=== PATIENT | female | born 1945 | race Caucasian/White ===

== ENCOUNTER 2020-12-25 09:40 | Outpatient (REF) | payer MEDICARE, SELFPAY ==
[2020-12-25 14:00] LABS: TSH 0.39 uIU/mL (0.36-3.74)
== END 2020-12-25 09:41 | disposition home or self-care (01) ==
LOC: NCHCN 09:40
PROVIDERS: PCP Internal Medicine; Visit Provider Registered Nurse
DX: E03.9 Hypothyroidism, unspecified (principal)
CPT/HCPCS: 84443

== ENCOUNTER 2021-05-12 17:10 | Outpatient (REF) | payer MEDICARE, OTHER, SELFPAY ==
[2021-05-14 11:34] LABS: COVID-19 RT-PCR UVMMC Result Negative (Negative)
== END 2021-05-12 17:11 | disposition home or self-care (01) ==
LOC: NCHCN 17:10
PROVIDERS: PCP Internal Medicine; Visit Provider Registered Nurse
DX: Z20.822 Contact with and (suspected) exposure to COVID-19 (principal); R19.7 Diarrhea, unspecified
CPT/HCPCS: U0003; U0005

== ENCOUNTER 2021-06-17 18:01 | Outpatient (REF) | payer MEDICARE, SELFPAY ==
[2021-06-17 21:03] LABS: Abs Immature Grans 0.02 10^3/uL (0.0-0.06); Absolute Eosinophil Count 0.39 10^3/uL (0.0-0.7); Absolute Lymphocyte Count 2.02 10^3/uL (1.2-3.4); Absolute Monocyte Count 0.45 10^3/uL (0.1-0.8); Absolute Neutrophil Count 4.03 10^3/uL (1.2-6.7); Basophils % 1.4; Eosinophils % 5.6; HCT 36.5 % (36.0-46.0); HGB 11.8 g/dL (11.2-15.7); Immature Grans % 0.3; Lymphocytes % 28.8; MCHC 32.3 % (32.0-36.0); MCV 95.8 fL (80-95); MPV 9.9 fL (8.0-11.0); Monocytes % 6.4; Neutrophils % 57.5; Nucleated RBC 0 %; Platelet Count 359 10^3/uL (130-400); RBC 3.81 10^6/uL (3.93-5.22); RDW 12.8 % (11.7-14.6); RDW-SD 45.2 fL; WBC 7.01 10^3/uL (4.4-10.8)
== END 2021-06-17 18:02 | disposition home or self-care (01) ==
LOC: NCHCN 18:01
PROVIDERS: PCP Internal Medicine; Visit Provider Registered Nurse
DX: R19.7 Diarrhea, unspecified (principal)
CPT/HCPCS: 85025

== ENCOUNTER 2021-06-18 16:09 | Outpatient (REF) | payer MEDICARE, OTHER, SELFPAY ==
[2021-06-20 20:57] LABS: Campylobacter PCR Negative (Negative); Salmonella PCR Negative (Negative); Shiga Toxin PCR Negative (Negative); Shigella/Enteroinvasive Ecoli Negative (Negative)
== END 2021-06-18 16:10 | disposition home or self-care (01) ==
LOC: NCHCN 16:09
PROVIDERS: PCP Internal Medicine; Visit Provider Registered Nurse
DX: R19.7 Diarrhea, unspecified (principal)
CPT/HCPCS: 87329; 87493; 87505; 83630

== ENCOUNTER 2021-12-29 22:34 | Outpatient (REF) | payer MEDICARE, OTHER, SELFPAY ==
[2021-12-29 18:24] LABS: BUN 18 mg/dL (7-18); CREATININE 0.7 mg/dL (0.55-1.02); Calcium 8.8 mg/dL (8.5-10.1); Chloride 103 mmol/L (98-107); Estimated GFR 89.58 (mL/min/1.73m2); Glucose 89 mg/dL (74-106); Potassium 4.6 mmol/L (3.5-5.1); Sodium 138 mmol/L (136-145); TSH 0.23 uIU/mL (0.36-3.74)
== END 2021-12-29 22:35 | disposition home or self-care (01) ==
LOC: NCHCN 22:34
PROVIDERS: PCP Internal Medicine; Visit Provider Registered Nurse
DX: I10 Essential (primary) hypertension (principal)
CPT/HCPCS: 80048; 84443

== ENCOUNTER 2022-02-25 22:35 | Outpatient (REF) | payer MEDICARE, OTHER, SELFPAY ==
[2022-02-25 22:10] LABS: TSH 0.26 uIU/mL (0.36-3.74)
== END 2022-02-25 22:36 | disposition home or self-care (01) ==
LOC: NCHCN 22:35
PROVIDERS: PCP Internal Medicine; Visit Provider Registered Nurse
DX: E03.9 Hypothyroidism, unspecified (principal)
CPT/HCPCS: 83874; 84443

== ENCOUNTER 2022-08-05 15:39 | Outpatient (REF) | payer MEDICARE, OTHER, SELFPAY ==
[2022-08-05 14:44] LABS: HCT 37.1 % (36.0-46.0); HGB 12.4 g/dL (11.2-15.7); MCH 32.2 pg (27.0-33.0); MCHC 33.4 % (32.0-36.0); MCV 96 fL (80-95); MPV 9.2 fL (8.0-11.0); Platelet Count 439 10^3/uL (130-400); RBC 3.85 10^6/uL (3.93-5.22); RDW 12.2 % (11.7-14.6); RDW-SD 43.5 fL; WBC 6.44 10^3/uL (4.4-10.8)
[2022-08-05 15:21] LABS: Iron 63 ug/dL (50-170); Total Iron Binding Capacity 275 ug/dL (250-450)
[2022-08-05 15:43] LABS: Ferritin 82 ng/mL (8-252); TSH 2.72 uIU/mL (0.36-3.74); Vitamin B12 491 pg/mL (193-986)
--- OUTSIDE RECORDS SUMMARY | 2022-08-05 15:43 | XMS_ITS | CCD ---
Author Name Unknown Address [address] [place] [address] [id number] Organization Unknown Address [address] [place] [address] [id number] Care Team Providers Care Career Technical Education Instructor Name Role Phone MARIANNA PONCE Attending Physician [phone] Vital Signs Unknown or Not Available. Allergies Allergy Code Allergy Type Reaction Status No Known Allergies 0 No known allergies Active Procedures Unknown or Not Available. History of Immunizations Unknown or Not Available. Problems Unknown or Not Available. Results Unknown or Not Available. Active Medications Unknown or Not Available. Medications Administered During Visit Unknown or Not Available. Encounters Encounter Diagnosis Diagnosis Code Start Date Dyspnea [id number] 05/27/2022 Social History Smoking Status Code Start Date End Date Never smoker [id number] Patient Decision Aids Unknown or Not Available. Discharge Instructions You were admitted to [facility] on 05/27/2022 14:32 with a principal diagnosis of Other forms of dyspnea You were discharged from [facility] on 05/27/2022 14:32 Should you have any questions prior to discharge, please contact a member of your healthcare team. If you have left the hospital and have any questions, please contact your primary care physician. Chief Complaint and Reason For Visit Unknown or Not Available. Function Status Unknown or Not Available. Plan of Care Unknown or Not Available. Referral/Transition of Care Unknown or Not Available.
[2022-08-05 15:44] LABS: Folate > 20.0 ng/mL (8.6-20.0)
--- OUTSIDE RECORDS SUMMARY | 2022-08-05 15:44 | XMS_ITS | CCD ---
Author Name Unknown Address [address] [place] [address] [id number] Organization Unknown Address [address] [place] [address] [phone] Care Team Providers Care In Flight Refueling Craftsman Name Role Phone SAMANTHA ARNETT Attending Physician [phone] Vital Signs Unknown or Not Available. Allergies [...] Encounters Encounter Diagnosis Diagnosis Code Start Date Encounter for screening mamm ogram for malignant neoplasm of breast Z1231 06/13/2022 Social History Smoking Status Code Start Date End Date Never smoker [id number] Patient Decision Aids Unknown or Not Available. Discharge Instructions You were admitted to [facility] on 06/13/2022 13:34 with a principal diagnosis of Encounter for screening mammogram for malignant neoplasm of breast You were discharged from [facility] on 06/13/2022 13:34 Should you have any questions prior to discharge, please contact a member of your healthcare team. If you have left the hospital and have any questions, please contact your primary care physician. Chief Complaint and Reason For Visit Chief Complaint Date of Onset SCREENING Function Status Unknown or Not Available. Plan of Care Unknown or Not Available. Referral/Transition of Care Unknown or Not Available.
== END 2022-08-05 15:40 | disposition home or self-care (01) ==
LOC: NCHCN 15:39
PROVIDERS: PCP Internal Medicine; Visit Provider Registered Nurse
DX: D75.89 Other specified diseases of blood and blood-forming organs (principal); R20.2 Paresthesia of skin; M79.604 Pain in right leg; M79.605 Pain in left leg; R79.89 Other specified abnormal findings of blood chemistry
CPT/HCPCS: 85027; 82607; 82728; 82746; 83540; 83550; 84443

== ENCOUNTER 2023-01-18 10:46 | Outpatient (REF) | payer MEDICARE, OTHER, SELFPAY ==
[2023-01-18 22:22] LABS: HCT 37.7 % (36.0-46.0); HGB 12.5 g/dL (11.2-15.7); MCH 32.3 pg (27.0-33.0); MCHC 33.2 % (32.0-36.0); MCV 97 fL (80-95); MPV 9.4 fL (8.0-11.0); Platelet Count 411 10^3/uL (130-400); RBC 3.87 10^6/uL (3.93-5.22); RDW 12.9 % (11.7-14.6); RDW-SD 45.9 fL; WBC 8.01 10^3/uL (4.4-10.8)
[2023-01-18 22:40] LABS: Anion Gap 6.5 mmol/L (3-11); BUN 18 mg/dL (7-18); CO2 29.5 mmol/L (21.0-32.0); CREATININE 0.8 mg/dL (0.55-1.02); Calcium 9.3 mg/dL (8.5-10.1); Chloride 102 mmol/L (98-107); Estimated GFR 75.84 (mL/min/1.73m2); Glucose 80 mg/dL (74-106); Potassium 4.2 mmol/L (3.5-5.1); Sodium 138 mmol/L (136-145); TSH 2.55 uIU/mL (0.36-3.74)
== END 2023-01-18 10:47 | disposition home or self-care (01) ==
LOC: NCHCN 10:46
PROVIDERS: PCP Internal Medicine; Visit Provider Family Medicine
DX: E03.9 Hypothyroidism, unspecified (principal); D75.89 Other specified diseases of blood and blood-forming organs; M85.80 Other specified disorders of bone density and structure, unspecified site; I10 Essential (primary) hypertension
CPT/HCPCS: 80048; 85027; 84443

== ENCOUNTER 2023-05-09 14:07 | Outpatient (REF) | payer MEDICARE, OTHER, SELFPAY ==
--- OUTSIDE RECORDS SUMMARY | 2023-05-09 14:09 | XMS_ITS | CCD ---
Author Name Unknown Address [address] [place] [address] [phone] Organization Unknown Address [address] [place] [address] [phone] Care Team Providers Care Rabies Inspector Name Role Phone SAMANTHA ARNETT Attending Physician [phone] Vital Signs Unknown or Not Available. Allergies Allergy Code Allergy Type Reaction Status No Known Allergies 0 No known allergies Active Procedures Unknown or Not Available. History of Immunizations Unknown or Not Available. Problems Problem Code Start Date Resolved Date Status Hypertension 86265675 Active Empyema 301389447 Active Results Unknown or Not Available. Active Medications Medication Code Dose Units Frequency Route Modificatio n Start Date/Time Cefpodoxime Proxetil 200MG Oral Tablet 045129 1 TABLET TWICE A DAY ORAL 2023 12:47 Prescription Detail TAKE 1 TABLET ORAL TWICE A DAY Ondansetron 4MG Oral Tablet, Disintegrating 988163 1 TABLET NEEDED EVERY 6 HOURS ORAL 04/19/2023 12:47 Prescription Detail TAKE 1 TABLET ORAL NEEDED EVERY 6 HALLE RS FOR Nausea/Vomiting Medications Administered During Visit Unknown or Not Available. Encounters Encounter Diagnosis Diagnosis Code Start Date Encounter for screening mamm ogram for malignant neoplasm of breast Z1231 06/13/2022 Social History Smoking Status Code Start Date End Date Never smoker [id number] Patient Decision Aids Unknown or Not Available. Discharge Instructions You were admitted to [facility] on 06/13/2022 13:34 with a principal diagnosis of Encounter for screening mammogram for malignant neoplasm of breast You were discharged from [facility] on 06/13/2022 13:34 Should you have [...]
--- OUTSIDE RECORDS SUMMARY | 2023-05-09 14:09 | XMS_ITS | CCD ---
Author Name Unknown Address [address] [place] [address] [phone] Organization Unknown Address [address] [place] [address] [phone] Care Team Providers Care Internet Systems Administrator Name Role Phone SAÚL GUY Attending Physician [phone] SAÚL GUY (Secondary) Physi osman [phone] Vital Signs Unknown or Not Available. Allergies Allergy Code Allergy Type Reaction Status No Known Allergies 0 No known allergies Active Procedures Unknown or Not Available. History of Immunizations Unknown or Not Available. Problems Problem Code Start Date Resolved Date Status Hypertension 80401639 Active Empyema 301439989 Active Results Unknown or Not Available. Active Medications Medication Code Dose Units Frequency Route Modificatio n Start Date/Time Cefpodoxime Proxetil 200MG Oral Tablet 569530 1 TABLET TWICE A DAY ORAL 2023 12:47 Prescription Detail TAKE 1 TABLET ORAL TWICE A DAY Ondansetron 4MG Oral Tablet, Disintegrating 235223 1 TABLET NEEDED EVERY 6 HOURS ORAL 04/19/2023 12:47 Prescription Detail TAKE 1 TABLET ORAL NEEDED EVERY 6 HALLE RS FOR Nausea/Vomiting Medications Administered During Visit Unknown or Not Available. Encounters Encounter Diagnosis Diagnosis Code Start Date Idiopathic osteoarthritis [id number] 2022 Social History Smoking Status Code Start Date End Date Never smoker [id number] Patient Decision Aids Unknown or Not Available. Discharge Instructions You were admitted to [facility] on 03/29/2023 11:15 with a principal diagnosis of Unilateral primary osteoarthritis, right knee You were discharged from [facility] on 03/29/2023 08:17 Should you have any questions prior to [...]
--- OUTSIDE RECORDS SUMMARY | 2023-05-09 14:09 | XMS_ITS | CCD ---
Author Name Unknown Address [address] [place] [address] [phone] Organization Unknown Address [address] [place] [address] [phone] Care Team Providers Care Oss Architect Name Role Phone MARIANNA PONCE Attending Physician [phone] Vital Signs Unknown or Not Available. Allergies Allergy Code Allergy Type Reaction Status No Known Allergies 0 No known allergies Active Procedures Unknown or Not Available. History of Immunizations Unknown or Not Available. Problems Problem Code Start Date Resolved Date Status Hypertension 89751451 Active Empyema 009615426 Active Results Unknown or Not Available. Active Medications Medication Code Dose Units Frequency Route Modificatio n Start Date/Time Cefpodoxime Proxetil 200MG Oral Tablet 375485 1 TABLET TWICE A DAY ORAL 2023 12:47 Prescription Detail TAKE 1 TABLET ORAL TWICE A DAY Ondansetron 4MG Oral Tablet, Disintegrating 158085 1 TABLET NEEDED EVERY 6 HOURS ORAL 04/19/2023 12:47 Prescription Detail TAKE 1 TABLET ORAL NEEDED EVERY 6 HALLE RS FOR Nausea/Vomiting Medications Administered During Visit Unknown or Not Available. Encounters Encounter Diagnosis Diagnosis Code Start Date Dyspnea 912002435 05/27/2022 Social History Smoking Status Code Start Date End Date Never smoker 920190851 Patient Decision Aids Unknown or Not Available. Discharge Instructions You were admitted to [facility] on 05/27/2022 14:32 with a principal diagnosis of Other forms of dyspnea You were discharged from [facility] on 05/27/2022 14:32 Should you have [...]
--- OUTSIDE RECORDS SUMMARY | 2023-05-09 14:10 | XMS_ITS | CCD ---
Author Name Unknown Address [address] [place] [address] [id number] Organization Unknown Address [address] [place] [address] [phone] Care Team Providers Care Coke Wheeler Name Role Phone MILTON JACK Attending Physician [phone] MILTON JACK Er Physician [phone] ABISAI Campbell Registered Nurse [phone] Vital Signs Vital Sign Value Unit Date/Time Recent/Initial ? BMI (Body Mass Index) 20.41 kg/m^2 04/19/2023 09: 20 Initial VS Weight Measured 108 lbs 04/19/2023 09:20 Ini tial VS Height 61 in 04/19/2023 09:20 Initial VS BSA (Body Surface Area) 1.45 m^2 04/19/2023 0 9:20 Initial VS BP Systolic 143 mmHg 04/19/2023 09:20 Initial VS BP Diastolic 85 mmHg 04/19/2023 09:20 Initia l VS Respiratory Rate 14 bpm 04/19/2023 09:20 In itial VS Heart Rate 64 bpm 04/19/2023 09:20 Initial VS O2 % BldC Oximetry 96 % 04/19/2023 09:20 Initial VS Body Temperature 35.5 degrees 04/19/2023 09:20 In itial VS BP Systolic 138 mmHg 04/19/2023 13:09 Most Re cent VS BP Diastolic 86 mmHg 04/19/2023 13:09 Most R ecent VS Respiratory Rate 18 bpm 04/19/2023 13:[address] Recent VS Heart Rate 62 bpm 04/19/2023 13:09 Most Rec ent VS O2 % BldC Oximetry 92 % 04/19/2023 13:09 Most Recent VS Body Temperature 35.8 degrees 04/19/2023 13:[address] Recent VS Allergies Allergy Code Allergy Type Reaction Status No Known Allergies 0 No known allergies Active Procedures Unknown or Not Available. History of Immunizations Unknown or Not Available. Problems Problem Code Start Date Resolved Date Status Hypertension 74688040 Active Empyema 158706406 Active Results BNP (PRO-B NATRIURETIC PEPTI DE) - Collect Date/Time: 04/19/2023 09:40 Test Name Code Test Result Test Units Test Ref Rang e NT-proBNP 10309-5 67.0 pg/mL L=0.0 H=450 COMPREHENSIVE METABOLIC PANE L (CMP) - Collect Date/Time: 04/19/2023 09:40 Test Name Code Test Result Test Units Test Ref Rang e GLUCOSE 2345-7 105 mg/dL L=70 H=116 BUN 3094-0 13 mg/dL L=6 H=25 CREATININE 2160-0 0.82 mg/dL L=0.51 H=0.95 SODIUM SERUM 2951-2 137 mmol/L L=136 H=145 POTASSIUM SERUM 2823-3 4.0 mmol/L L=3.4 H=5 .2 CHLORIDE SERUM 2075-0 102 mmol/L L=96 H=110 CARBON DIOXIDE (CO2) 2028-9 30 mmol/L L=22 H=34 ANION GAP 34481-2 5.2 mmol/L CALCIUM SERUM 85982-5 9.2 mg/dL L=8.2 H=10. 2 BILIRUBIN TOTAL 1975-2 0.7 mg/dL L=0.0 H=1 .3 ALK. PHOS. 6768-6 59 U/L L=46 H=116 SGOT (AST) 1920-8 13 U/L L=15 H=37 SGPT (ALT) 1742-6 14 U/L L=12 H=78 TOTAL PROTEIN 2885-2 7.7 gm/dL L=6.0 H=8.0 ALBUMIN 1751-7 3.4 gm/dL L=3.4 H=5.0 AGE 78 years eGFR (non-Afr.Amer.) 26308-0 67 mL/min eGFR (Afr-Citizen [place]) 45836-9 82 mL/min TROPONIN HIGH SENSITIVITY* - Collect Date/Time: 04/19/2023 09:40 Test Name Code Test Result Test Units Test Ref Rang e TROPONIN HS 6.1 pg/mL L=0.0 H=60.4 Specimen seq. ADM. N/A CBC W/ DIFFERENTIAL* - [facility] ct Date/Time: 04/19/2023 09:40 Test Name Code Test Result Test Units Test Ref Rang e WBC 6690-2 7.13 th/cmm L=5.00 H=10.00 NEUT % 73.9 % L=40.0 H=80.0 LYMPH % 12.2 % L=10.0 H=50.0 MONO % 38819-4 9.0 % L=2.0 H=12.0 EOS % 2.9 % L=0.0 H=8.0 BASO % 1.3 % L=0.0 H=3.0 IG % 2514-8 0.7 % L=0.0 H=1.1 NRBC % 90372-7 0.0 % L=0.0 H=0.0 NEUT abs count 751-8 5.3 th/cmm L=1.6 H=8. 4 LYMPH abs count 731-0 0.9 th/cmm L=1.5 H=4 .0 MONO abs count 742-7 0.6 th/cmm L=0.2 H=1. 0 EOS abs count 711-2 0.2 th/cmm L=0.0 H=0.5 BASO abs count 704-7 0.1 th/cmm L=0.0 H=0. 2 IG abs count 36176-3 0.1 th/cmm L=0.0 H=0.1 NRBC abs count 57453-0 0.0 mil/cmm L=0.0 H=0. 0 RBC 789-8 4.26 mil/cmm L=3.90 H=5.40 HEMOGLOBIN 718-7 13.7 gm/dL L=12.0 H=16.0 HEMATOCRIT 4544-3 41 % L=37 H=47 MCV 787-2 97 fL L=82 H=92 MCH 785-6 32.2 pg L=27.0 H=31.0 MCHC 786-4 33.2 % L=32.0 H=36.0 RDW-SD 788-0 44.4 fL L=39.0 H=49.0 PLATELET COUNT 777-3 425 th/cmm L=150 H=45 0 ASHLEY COVID FLU RSV GENEXPE RT - Collect Date/Time: 04/19/2023 09:40 Test Name Code Test Result Test Units Test Ref Rang e COVID 27458-9 NEGATIVE N/A Normal: Negati ve INFLUENZA A DNA 03212-7 NEGATIVE N/A Normal: N egative INFLUENZA B DNA 08021-3 NEGATIVE N/A Normal: N egative RSV DNA 82103-0 NEGATIVE N/A Normal: Negati ve CULT URINE CULTURE* - Colle t Date/Time: 04/19/2023 11:35 Test Name Code Test Result Test Units Test Ref Rang e COLLECTION MODE: 20137-3 CLEAN CATCH N/A URINALYSIS WITH REFLEX CULT IF POSITIVE* - Collect Date/Time: 04/19/2023 11:35 Test Name Code Test Result Test Units Test Ref Rang e COLLECTION MODE: 00679-1 CLEAN CATCH N/A Color 5778-6 YELLOW N/A yellow Appearance 5767-9 CLEAR N/A clear Glucose urine 56627-3 NEGATIVE N/A negative mg /dl Bilirubin 5770-3 NEGATIVE N/A negative Ketones 2514-8 TRACE N/A negative mg/dl Spec gravity 5811-5 1.010 N/A 1.003 - 1.03 0 pH urine 2756-5 6.5 N/A 5.0 - 7.0 Protein 04489-3 NEGATIVE N/A negative mg/dl Urobilinogen 97570-5 0.2 N/A <or= 1 EU/dl Nitrite. 5802-4 NEGATIVE N/A negative Blood 5794-3 NEGATIVE N/A negative Leukocytes. MODERATE N/A negative MICROSCOPIC INDICATED N/A WBCs. 74299-9 25-100 N/A 0-5 / hpf RBCs 18549-0 5-10 N/A 0-5 / hpf Epith cells 39246-1 0-5 N/A 0-5 / hpf Cell types squamous N/A Crystals none N/A none Bacteria moderate N/A none Mucus 8247-9 present N/A none Casts 43755-0 none N/A none /lpf Active Medications Unknown or Not Available. Medications Administered During Visit Medication Dose Units Frequency Route Date/Time of Last Dose SODIUM CHLORIDE 0.9% 500ML 1 EA X1 IV 04/19/2023 10:09 ONDANSETRON INJ SDV: 4MG/2ML 4 MG X1 I DISC RULER OPERATOR 04/19/2023 10:09 ACETAMINOPHEN INJ IVPB: 1000MG/100ML 1 EA X1 IVPB 04/19/2023 10:3 4 CEFPODOXIME TABLET: 200MG 200 MG X1 PO 04/19/2023 13:08 Encounters Encounter Diagnosis Diagnosis Code Start Date Urinary tract infectious disease 71934225 04/19/2023 Social History Smoking Status Code Start Date End Date Former smoker 0844490 Patient Decision Aids Unknown or Not Available. Discharge Instructions You were admitted to [facility] on 04/19/2023 08:56 with a principal diagnosis of Urinary tract infection, site not specified You had the following tests done:CULT URINE CULTURE*URINALYSIS WITH REFLEX CULT IF POSITIVE*BNP (PRO-B NATRIURETIC PEPTIDE)CBC W/ DIFFERENTIAL*COMPREHENSIVE METABOLIC PANEL (CMP)[facility] FLU RSV GENEXPERTTROPONIN HIGH SENSITIVITY* You were discharged from [facility] on 04/19/2023 13:08 Should you have any questions prior to discharge, please contact a member of your healthcare team. If you have left the hospital and have any questions, please contact your primary care physician. Chief Complaint and Reason For Visit Chief Complaint Date of Onset FLULIKE SYMPTOMS Function Status Unknown or Not Available. Plan of Care Unknown or Not Available. Referral/Transition of Care Unknown or Not Available.
== END 2023-05-09 14:08 | disposition home or self-care (01) ==
LOC: NCHCN 14:07
PROVIDERS: PCP Internal Medicine; Visit Provider Family Medicine
DX: R11.0 Nausea (principal)
CPT/HCPCS: 87086

== ENCOUNTER 2023-06-05 18:52 | Outpatient (REF) | payer MEDICARE, SELFPAY ==
[2023-06-05 14:58] LABS: HCT 43.2 % (36.0-46.0); HGB 14.3 g/dL (11.2-15.7); MCH 32.1 pg (27.0-33.0); MCHC 33.1 % (32.0-36.0); MCV 97 fL (80-95); MPV 9.2 fL (8.0-11.0); Platelet Count 419 10^3/uL (130-400); RBC 4.45 10^6/uL (3.93-5.22); RDW 12.9 % (11.7-14.6); RDW-SD 45.9 fL
[2023-06-05 15:47] LABS: ALT 27 U/L (14-59); AST 25 U/L (15-37); Albumin 4.1 g/dL (3.4-5.0); Alkaline Phosphatase 61 U/L (46-116); Anion Gap 10.6 mmol/L (3-11); BUN 13 mg/dL (7-18); Bilirubin, Total 1.1 mg/dL (0.2-1.0); CO2 28.4 mmol/L (21.0-32.0); CREATININE 0.8 mg/dL (0.55-1.02); Calcium 9.7 mg/dL (8.5-10.1); Chloride 102 mmol/L (98-107); Estimated GFR 75.37 (mL/min/1.73m2); Glucose 97 mg/dL (74-106); Lipase 51 U/L (16-77); Potassium 4.3 mmol/L (3.5-5.1); Sodium 141 mmol/L (136-145); TSH 3.88 uIU/mL (0.36-3.74); Total Protein 8.3 g/dL (6.4-8.2)
--- OUTSIDE RECORDS SUMMARY | 2023-06-05 18:54 | XMS_ITS | CCD ---
Author Name Unknown Address [address] [place] [address] [phone] Organization Unknown Address [address] [place] [address] [phone] Care Team Providers Care Environmental Associate Name Role Phone SAMANTHA ARNETT Attending Physician [phone] Vital Signs Unknown or Not Available. Allergies Allergy Code Allergy Type Reaction Status No Known Allergies 0 No known allergies Active Procedures Unknown or Not Available. History of Immunizations Unknown or Not Available. Problems Problem Code Start Date Resolved Date Status Hypertension 37879411 Active Empyema 991307222 Active Results Unknown or Not Available. Active Medications Medication Code Dose Units Frequency Route Modificatio n Start Date/Time Cefpodoxime Proxetil 200MG Oral Tablet 864746 1 TABLET TWICE A DAY ORAL 2023 12:47 Prescription Detail TAKE 1 TABLET ORAL TWICE A DAY Ondansetron 4MG Oral Tablet, Disintegrating 408883 1 TABLET NEEDED EVERY 6 HOURS ORAL 04/19/2023 12:47 Prescription Detail TAKE 1 TABLET ORAL NEEDED EVERY 6 HALLE RS FOR Nausea/Vomiting Medications Administered During Visit Unknown or Not Available. Encounters Encounter Diagnosis Diagnosis Code Start Date Encounter for screening mamm ogram for malignant neoplasm of breast Z1231 06/13/2022 Social History Smoking Status Code Start Date End Date Never smoker 854460415 Patient Decision Aids Unknown or Not Available. Discharge Instructions You were admitted to [facility] on 06/13/2022 13:34 with a principal diagnosis of Encounter for screening mammogram for malignant neoplasm of breast You were discharged from [facility] on 06/13/2022 13:34 Should you have any [...]
--- OUTSIDE RECORDS SUMMARY | 2023-06-05 18:55 | XMS_ITS | CCD ---
Author Name Unknown Address [address] [place] [address] [id number] Organization Unknown Address [address] [place] [address] [phone] Care Team Providers Care Steel Division Supervisor Name Role Phone CHRIST GUSTAFSON Attending Physician [phone] Vital Signs Unknown or Not Available. Allergies Allergy Code Allergy Type Reaction Status No Known Allergies 0 No known allergies Active Procedures Unknown or Not Available. History of Immunizations Unknown or Not Available. Problems Problem Code Start Date Resolved Date Status Hypertension 21412954 Active Empyema 631652191 Active Results Unknown or Not Available. Active Medications Medication Code Dose Units Frequency Route Modificatio n Start Date/Time Cefpodoxime Proxetil 200MG Oral Tablet 222020 1 TABLET TWICE A DAY ORAL 2023 12:47 Prescription Detail TAKE 1 TABLET ORAL TWICE A DAY Ondansetron 4MG Oral Tablet, Disintegrating 268717 1 TABLET NEEDED EVERY 6 HOURS ORAL 04/19/2023 12:47 Prescription Detail TAKE 1 TABLET ORAL NEEDED EVERY 6 HALLE RS FOR Nausea/Vomiting Medications Administered During Visit Unknown or Not Available. Encounters Unknown or Not Available. Social History Smoking Status Code Start Date End Date Former smoker 5476016 Patient Decision Aids Unknown or Not Available. Discharge Instructions You were admitted to [facility] on 05/19/2023 15:08 You were discharged from [facility] on 05/19/2023 15:08 Should you have any questions prior to [...]
--- OUTSIDE RECORDS SUMMARY | 2023-06-05 18:55 | XMS_ITS | CCD ---
Author Name Unknown Address [address] [place] [address] [phone] Organization Unknown Address [address] [place] [address] [phone] Care Team Providers Care Preventive Maintenance Coordinator Name Role Phone SAÚL GUY Attending Physician [phone] SAÚL GUY (Secondary) Physi osman [phone] Vital Signs Unknown or Not Available. Allergies Allergy Code Allergy Type Reaction Status No Known Allergies 0 No known allergies Active Procedures Unknown or Not Available. History of Immunizations Unknown or Not Available. Problems Problem Code Start Date Resolved Date Status Hypertension 60437149 Active Empyema 573662519 Active Results Unknown or Not Available. Active Medications Medication Code Dose Units Frequency Route Modificatio n Start Date/Time Cefpodoxime Proxetil 200MG Oral Tablet 805164 1 TABLET TWICE A DAY ORAL 2023 12:47 Prescription Detail TAKE 1 TABLET ORAL TWICE A DAY Ondansetron 4MG Oral Tablet, Disintegrating 597093 1 TABLET NEEDED EVERY 6 HOURS ORAL 04/19/2023 12:47 Prescription Detail TAKE 1 TABLET ORAL NEEDED EVERY 6 HALLE RS FOR Nausea/Vomiting Medications Administered During Visit Unknown or Not Available. Encounters Encounter Diagnosis Diagnosis Code Start Date Idiopathic osteoarthritis 592381257 2022 Social History Smoking Status Code Start Date End Date Never smoker 300683326 Patient Decision Aids Unknown or Not Available. Discharge Instructions You were admitted to [facility] on 03/29/2023 11:15 with a principal diagnosis of Unilateral primary osteoarthritis, right knee You were discharged from [facility] on 03/29/2023 08:17 Should you have any [...]
--- OUTSIDE RECORDS SUMMARY | 2023-06-05 18:55 | XMS_ITS | CCD ---
Author Name Unknown Address [address] [place] [address] [id number] Organization Unknown Address [address] [place] [address] [phone] Care Team Providers Care Commercial Lease Administrator Name Role Phone MILTON JACK Attending Physician [phone] MILTON JACK Er Physician 3 [phone] ABISAI Campbell Registered Nurse [phone] Vital Signs Vital Sign Value Unit Date/Time [...] Code Start Date Resolved Date Status Hypertension 90643700 Active Empyema 253159761 Active Results BNP (PRO-B NATRIURETIC PEPTI DE) - Collect Date/Time: 04/19/2023 09:40 Test Name Code Test Result Test Units Test Ref Rang e NT-proBNP 28046-3 67.0 pg/mL L=0.0 H=450 COMPREHENSIVE METABOLIC PANE [...] 2028-9 30 mmol/L L=22 H=34 ANION GAP 18795-7 5.2 mmol/L CALCIUM SERUM 06379-2 9.2 mg/dL L=8.2 H=10. 2 BILIRUBIN TOTAL 1975-2 0.7 mg/dL L=0.0 H=1 .3 ALK. PHOS. 6768-6 59 U/L L=46 H=116 SGOT (AST) 1920-8 13 U/L L=15 H=37 SGPT (ALT) 1742-6 14 U/L L=12 H=78 TOTAL PROTEIN 2885-2 7.7 gm/dL L=6.0 H=8.0 ALBUMIN 1751-7 3.4 gm/dL L=3.4 H=5.0 AGE 78 years eGFR (non-Afr.Amer.) 94509-1 67 mL/min eGFR (Afr-Marshallese) 44311-8 82 mL/min TROPONIN HIGH SENSITIVITY* - Collect Date/Time: 04/19/2023 09:40 Test Name Code Test Result Test Units Test Ref Rang e TROPONIN HS 6.1 pg/mL L=0.0 H=60.4 Specimen seq. ADM. N/A CBC W/ DIFFERENTIAL* - [facility] ct Date/Time: 04/19/2023 09:40 Test Name Code Test Result Test Units Test Ref Rang e WBC 6690-2 7.13 th/cmm L=5.00 H=10.00 NEUT % 73.9 % L=40.0 H=80.0 LYMPH % 12.2 % L=10.0 H=50.0 MONO % 89773-2 9.0 % L=2.0 H=12.0 EOS % 2.9 % L=0.0 H=8.0 BASO % 1.3 % L=0.0 H=3.0 IG % 2514-8 0.7 % L=0.0 H=1.1 NRBC % 15845-7 0.0 % L=0.0 H=0.0 NEUT abs count 751-8 5.3 th/cmm L=1.6 H=8. 4 LYMPH abs count 731-0 0.9 th/cmm L=1.5 H=4 .0 MONO abs count 742-7 0.6 th/cmm L=0.2 H=1. 0 EOS abs count 711-2 0.2 th/cmm L=0.0 H=0.5 BASO abs count 704-7 0.1 th/cmm L=0.0 H=0. 2 IG abs count 91839-4 0.1 th/cmm L=0.0 H=0.1 NRBC abs count 28845-7 0.0 mil/cmm L=0.0 H=0. 0 RBC 789-8 [...] Test Units Test Ref Rang e COVID 73620-2 NEGATIVE N/A Normal: Negati ve INFLUENZA A DNA 44009-4 NEGATIVE N/A Normal: N egative INFLUENZA B DNA 41437-4 NEGATIVE N/A Normal: N egative RSV DNA 69553-6 NEGATIVE N/A Normal: Negati ve CULT URINE CULTURE* - Colle t Date/Time: 04/19/2023 11:35 Test Name Code Test Result Test Units Test Ref Rang e COLLECTION MODE: 27333-8 CLEAN CATCH N/A URINALYSIS WITH REFLEX CULT IF POSITIVE* - Collect Date/Time: 04/19/2023 11:35 Test Name Code Test Result Test Units Test Ref Rang e COLLECTION MODE: 74232-9 CLEAN CATCH N/A Color 5778-6 YELLOW N/A yellow Appearance 5767-9 CLEAR N/A clear Glucose urine 94227-6 NEGATIVE N/A negative mg /dl Bilirubin 5770-3 NEGATIVE N/A negative Ketones 2514-8 TRACE N/A negative mg/dl Spec gravity 5811-5 1.010 N/A 1.003 - 1.03 0 pH urine 2756-5 6.5 N/A 5.0 - 7.0 Protein 62133-4 NEGATIVE N/A negative mg/dl Urobilinogen 49360-6 0.2 N/A <or= 1 EU/dl Nitrite. 5802-4 NEGATIVE N/A negative Blood 5794-3 NEGATIVE N/A negative Leukocytes. MODERATE N/A negative MICROSCOPIC INDICATED N/A WBCs. 75486-2 25-100 N/A 0-5 / hpf RBCs 60566-4 5-10 N/A 0-5 / hpf Epith cells 28837-3 0-5 N/A 0-5 / hpf Cell types squamous N/A Crystals none N/A none Bacteria moderate N/A none Mucus 8247-9 present N/A none Casts 77152-8 none N/A none /lpf Active Medications Unknown or Not Available. Medications Administered During Visit Medication Dose Units Frequency Route Date/Time of Last Dose SODIUM CHLORIDE 0.9% 500ML 1 EA X1 IV 04/19/2023 10:09 ONDANSETRON INJ SDV: 4MG/2ML 4 MG X1 I STERILIZER OPERATOR 04/19/2023 10:09 ACETAMINOPHEN INJ IVPB: 1000MG/100ML 1 EA X1 IVPB 04/19/2023 10:3 4 CEFPODOXIME TABLET: 200MG 200 MG X1 PO 04/19/2023 13:08 Encounters Encounter Diagnosis Diagnosis Code Start Date Urinary tract infectious disease 74653025 04/19/2023 Social History Smoking Status Code Start Date End Date Former smoker 4722256 Patient Decision Aids Unknown or Not Available. Discharge Instructions You were admitted to [facility] on 04/19/2023 08:56 with a principal diagnosis of Urinary tract infection, site not specified You had the following tests done:CULT URINE CULTURE*URINALYSIS WITH REFLEX CULT IF POSITIVE*BNP (PRO-B NATRIURETIC PEPTIDE)CBC W/ DIFFERENTIAL*COMPREHENSIVE METABOLIC PANEL (CMP)[facility] FLU RSV GENEXPERTTROPONIN HIGH SENSITIVITY* [...]
--- OUTSIDE RECORDS SUMMARY | 2023-06-05 18:55 | XMS_ITS | CCD ---
Author Name Unknown Address [address] [place] [address] [id number] Organization Unknown Address [address] [place] [address] [phone] Care Team Providers Care Certified Flex Endoscope Reprocessor Name Role Phone SAMANTHA ARNETT Attending Physician [phone] Vital Signs Unknown or Not Available. Allergies Allergy Code Allergy Type Reaction Status No Known Allergies 0 No known allergies Active Procedures Unknown or Not Available. History of Immunizations Unknown or Not Available. Problems Problem Code Start Date Resolved Date Status Hypertension 75225023 Active Empyema 449988066 Active Results Unknown or Not Available. Active Medications Medication Code Dose Units Frequency Route Modificatio n Start Date/Time Cefpodoxime Proxetil 200MG Oral Tablet 478562 1 TABLET TWICE A DAY ORAL 2023 12:47 Prescription Detail TAKE 1 TABLET ORAL TWICE A DAY Ondansetron 4MG Oral Tablet, Disintegrating 227063 1 TABLET NEEDED EVERY 6 HOURS ORAL 04/19/2023 12:47 Prescription Detail TAKE 1 TABLET ORAL NEEDED EVERY 6 HALLE RS FOR Nausea/Vomiting Medications Administered During Visit Unknown or Not Available. Encounters Encounter Diagnosis Diagnosis Code Start Date Encounter for screening mamm ogram for malignant neoplasm of breast Z1231 05/11/2021 Social History Smoking Status Code Start Date End Date Never smoker [id number] Patient Decision Aids Unknown or Not Available. Discharge Instructions You were admitted to [facility] on 05/11/2021 13:27 with a principal diagnosis of Encounter for screening mammogram for malignant neoplasm of breast You were discharged from [facility] on 05/11/2021 13:27 Should you have any questions prior to discharge, please contact a member of your healthcare team. If you have left the hospital and have any questions, please contact your primary care physician. Chief Complaint and Reason For Visit Chief Complaint Date of Onset POSTMENOPAUSAL MM SCR Function Status Unknown or Not Available. Plan of Care Unknown or Not Available. Referral/Transition of Care Unknown or Not Available.
--- OUTSIDE RECORDS SUMMARY | 2023-06-05 18:55 | XMS_ITS | CCD ---
Author Name Unknown Address [address] [place] [address] [phone] Organization Unknown Address [address] [place] [address] [phone] Care Team Providers Care Etl Bi Developer Name Role Phone MARIANNA PONCE Attending Physician [phone] Vital Signs Unknown or Not Available. Allergies Allergy Code Allergy Type Reaction Status No Known Allergies 0 No known allergies Active Procedures Unknown or Not Available. History of Immunizations Unknown or Not Available. Problems Problem Code Start Date Resolved Date Status Hypertension 19406173 Active Empyema 444312420 Active Results Unknown or Not Available. Active Medications Medication Code Dose Units Frequency Route Modificatio n Start Date/Time Cefpodoxime Proxetil 200MG Oral Tablet 516699 1 TABLET TWICE A DAY ORAL 2023 12:47 Prescription Detail TAKE 1 TABLET ORAL TWICE A DAY Ondansetron 4MG Oral Tablet, Disintegrating 070090 1 TABLET NEEDED EVERY 6 HOURS ORAL 04/19/2023 12:47 Prescription Detail TAKE 1 TABLET ORAL NEEDED EVERY 6 HALLE RS FOR Nausea/Vomiting Medications Administered During Visit Unknown or Not Available. Encounters Encounter Diagnosis Diagnosis Code Start Date Dyspnea 439738142 05/27/2022 Social History Smoking Status Code Start Date End Date Never smoker 001500898 Patient Decision Aids Unknown or Not Available. Discharge Instructions You were admitted to [facility] on 05/27/2022 14:32 with a principal diagnosis of Other forms of dyspnea You were discharged from [facility] on 05/27/2022 14:32 Should you have any [...]
== END 2023-06-05 18:53 | disposition home or self-care (01) ==
LOC: NCHCN 18:52
PROVIDERS: PCP Internal Medicine; Referring Provider Nurse Practitioner Family; Visit Provider Nurse Practitioner Family
DX: E03.9 Hypothyroidism, unspecified (principal); K29.70 Gastritis, unspecified, without bleeding
CPT/HCPCS: 80053; 83690; 85027; 84443

== ENCOUNTER 2023-06-06 21:20 | Outpatient (REF) | payer MEDICARE, OTHER, SELFPAY ==
--- OUTSIDE RECORDS SUMMARY | 2023-06-06 21:22 | XMS_ITS | CCD ---
Author Name Unknown Address [address] [place] [address] [phone] Organization Unknown Address [address] [place] [address] [phone] Care Team Providers Care Stretching Press Operator Name Role Phone CHRIST GUSTAFSON Attending Physician [phone] Vital Signs Unknown or Not Available. Allergies Allergy Code Allergy Type Reaction Status No Known Allergies 0 No known allergies Active Procedures Unknown or Not Available. History of Immunizations Unknown or Not Available. Problems Problem Code Start Date Resolved Date Status Hypertension 50148506 Active Empyema 982863418 Active Results Unknown or Not Available. Active Medications Medication Code Dose Units Frequency Route Modificatio n Start Date/Time Cefpodoxime Proxetil 200MG Oral Tablet 586647 1 TABLET TWICE A DAY ORAL 2023 12:47 Prescription Detail TAKE 1 TABLET ORAL TWICE A DAY Ondansetron 4MG Oral Tablet, Disintegrating 829459 1 TABLET NEEDED EVERY 6 HOURS ORAL 04/19/2023 12:47 Prescription Detail TAKE 1 TABLET ORAL NEEDED EVERY 6 HALLE RS FOR Nausea/Vomiting Medications Administered During Visit Unknown or Not Available. Encounters Unknown or Not Available. Social History Smoking Status Code Start Date End Date Former smoker 0864792 Patient Decision Aids Unknown or Not Available. Discharge Instructions You were admitted to [facility] on 05/19/2023 15:08 You were discharged from [facility] on 05/19/2023 15:08 Should you have [...]
--- OUTSIDE RECORDS SUMMARY | 2023-06-06 21:22 | XMS_ITS | CCD ---
Author Name Unknown Address [address] [place] [address] [phone] Organization Unknown Address [address] [place] [address] [phone] Care Team Providers Care Window Systems Administrator Name Role Phone MILTON JACK Attending Physician [phone] MILTON JACK Er Physician [phone] ABISAI Campbell Registered Nurse [phone] Vital Signs Vital Sign Value Unit Date/Time [...] Code Start Date Resolved Date Status Hypertension 04642608 Active Empyema 990456531 Active Results BNP (PRO-B NATRIURETIC PEPTI DE) - Collect Date/Time: 04/19/2023 09:40 Test Name Code Test Result Test Units Test Ref Rang e NT-proBNP 74625-0 67.0 pg/mL L=0.0 H=450 COMPREHENSIVE METABOLIC PANE [...] 2028-9 30 mmol/L L=22 H=34 ANION GAP 68217-8 5.2 mmol/L CALCIUM SERUM 51429-8 9.2 mg/dL L=8.2 H=10. 2 BILIRUBIN TOTAL 1975-2 0.7 mg/dL L=0.0 H=1 .3 ALK. PHOS. 6768-6 59 U/L L=46 H=116 SGOT (AST) 1920-8 13 U/L L=15 H=37 SGPT (ALT) 1742-6 14 U/L L=12 H=78 TOTAL PROTEIN 2885-2 7.7 gm/dL L=6.0 H=8.0 ALBUMIN 1751-7 3.4 gm/dL L=3.4 H=5.0 AGE 78 years eGFR (non-Afr.Amer.) 64987-3 67 mL/min eGFR (Afr-[place]ian) 49815-6 82 mL/min TROPONIN HIGH SENSITIVITY* - Collect Date/Time: 04/19/2023 09:40 Test Name Code Test Result Test Units Test Ref Rang e TROPONIN HS 6.1 pg/mL L=0.0 H=60.4 Specimen seq. ADM. N/A CBC W/ DIFFERENTIAL* - [facility] ct Date/Time: 04/19/2023 09:40 Test Name Code Test Result Test Units Test Ref Rang e WBC 6690-2 7.13 th/cmm L=5.00 H=10.00 NEUT % 73.9 % L=40.0 H=80.0 LYMPH % 12.2 % L=10.0 H=50.0 MONO % 34216-9 9.0 % L=2.0 H=12.0 EOS % 2.9 % L=0.0 H=8.0 BASO % 1.3 % L=0.0 H=3.0 IG % 2514-8 0.7 % L=0.0 H=1.1 NRBC % 92956-7 0.0 % L=0.0 H=0.0 NEUT abs count 751-8 5.3 th/cmm L=1.6 H=8. 4 LYMPH abs count 731-0 0.9 th/cmm L=1.5 H=4 .0 MONO abs count 742-7 0.6 th/cmm L=0.2 H=1. 0 EOS abs count 711-2 0.2 th/cmm L=0.0 H=0.5 BASO abs count 704-7 0.1 th/cmm L=0.0 H=0. 2 IG abs count 86283-2 0.1 th/cmm L=0.0 H=0.1 NRBC abs count 55308-6 0.0 mil/cmm L=0.0 H=0. 0 RBC 789-8 [...] Test Units Test Ref Rang e COVID 82928-7 NEGATIVE N/A Normal: Negati ve INFLUENZA A DNA 93191-2 NEGATIVE N/A Normal: N egative INFLUENZA B DNA 48757-4 NEGATIVE N/A Normal: N egative RSV DNA 55454-3 NEGATIVE N/A Normal: Negati ve CULT URINE CULTURE* - Colle t Date/Time: 04/19/2023 11:35 Test Name Code Test Result Test Units Test Ref Rang e COLLECTION MODE: 28909-7 CLEAN CATCH N/A URINALYSIS WITH REFLEX CULT IF POSITIVE* - Collect Date/Time: 04/19/2023 11:35 Test Name Code Test Result Test Units Test Ref Rang e COLLECTION MODE: 81241-9 CLEAN CATCH N/A Color 5778-6 YELLOW N/A yellow Appearance 5767-9 CLEAR N/A clear Glucose urine 98373-4 NEGATIVE N/A negative mg /dl Bilirubin 5770-3 NEGATIVE N/A negative Ketones 2514-8 TRACE N/A negative mg/dl Spec gravity 5811-5 1.010 N/A 1.003 - 1.03 0 pH urine 2756-5 6.5 N/A 5.0 - 7.0 Protein 82043-6 NEGATIVE N/A negative mg/dl Urobilinogen 77842-9 0.2 N/A <or= 1 EU/dl Nitrite. 5802-4 NEGATIVE N/A negative Blood 5794-3 NEGATIVE N/A negative Leukocytes. MODERATE N/A negative MICROSCOPIC INDICATED N/A WBCs. 62088-3 25-100 N/A 0-5 / hpf RBCs 38956-0 5-10 N/A 0-5 / hpf Epith cells 11686-4 0-5 N/A 0-5 / hpf Cell types squamous N/A Crystals none N/A none Bacteria moderate N/A none Mucus 8247-9 present N/A none Casts 76162-1 none N/A none /lpf Active Medications Unknown or Not Available. Medications Administered During Visit Medication Dose Units Frequency Route Date/Time of Last Dose SODIUM CHLORIDE 0.9% 500ML 1 EA X1 IV 04/19/2023 10:09 ONDANSETRON INJ SDV: 4MG/2ML 4 MG X1 I INTERNATIONAL LOGISTICS COORDINATOR 04/19/2023 10:09 ACETAMINOPHEN INJ IVPB: 1000MG/100ML 1 EA X1 IVPB 04/19/2023 10:3 4 CEFPODOXIME TABLET: 200MG 200 MG X1 PO 04/19/2023 13:08 Encounters Encounter Diagnosis Diagnosis Code Start Date Urinary tract infectious disease 38966692 04/19/2023 Social History Smoking Status Code Start Date End Date Former smoker 0748341 Patient Decision Aids Unknown or Not Available. Discharge Instructions You were admitted to on 04/19/2023 08:56 with a principal diagnosis of Urinary tract infection, site not specified You had the following tests done:CULT URINE CULTURE*URINALYSIS WITH REFLEX CULT IF POSITIVE*BNP (PRO-B NATRIURETIC PEPTIDE)CBC W/ DIFFERENTIAL*COMPREHENSIVE METABOLIC PANEL (CMP)[facility] FLU RSV GENEXPERTTROPONIN HIGH SENSITIVITY* You were discharged from on 04/19/2023 13:08 Should you have any [...]
--- OUTSIDE RECORDS SUMMARY | 2023-06-06 21:22 | XMS_ITS | CCD ---
Author Name Unknown Address [address] [place] [address] [phone] Organization Unknown Address [address] [place] [address] [phone] Care Team Providers Care Portal Architect Name Role Phone SAMANTHA ARNETT Attending Physician [phone] Vital Signs Unknown or Not Available. Allergies Allergy Code Allergy Type Reaction Status No Known Allergies 0 No known allergies Active Procedures Unknown or Not Available. History of Immunizations Unknown or Not Available. Problems Problem Code Start Date Resolved Date Status Hypertension 99721904 Active Empyema 823219964 Active Results Unknown or Not Available. Active Medications Medication Code Dose Units Frequency Route Modificatio n Start Date/Time Cefpodoxime Proxetil 200MG Oral Tablet 057659 1 TABLET TWICE A DAY ORAL 2023 12:47 Prescription Detail TAKE 1 TABLET ORAL TWICE A DAY Ondansetron 4MG Oral Tablet, Disintegrating 332306 1 TABLET NEEDED EVERY 6 HOURS ORAL 04/19/2023 12:47 Prescription Detail TAKE 1 TABLET ORAL NEEDED EVERY 6 HALLE RS FOR Nausea/Vomiting Medications Administered During Visit Unknown or Not Available. Encounters Encounter Diagnosis Diagnosis Code Start Date Encounter for screening mamm ogram for malignant neoplasm of breast Z1231 05/11/2021 Social History Smoking Status Code Start Date End Date Never smoker [id number] Patient Decision Aids Unknown or Not Available. Discharge Instructions You were admitted to [facility] on 05/11/2021 13:27 with a principal diagnosis of Encounter for screening mammogram for malignant neoplasm of breast You were discharged from [facility] on 05/11/2021 13:27 Should you have [...]
--- OUTSIDE RECORDS SUMMARY | 2023-06-06 21:22 | XMS_ITS | CCD ---
Author Name Unknown Address [address] [place] [address] [phone] Organization Unknown Address [address] [place] [address] [phone] Care Team Providers Care Recreation Program Specialist Name Role Phone SAMANTHA ARNETT Attending Physician [phone] Vital Signs Unknown or Not Available. Allergies Allergy Code Allergy Type Reaction Status No Known Allergies 0 No known allergies Active Procedures Unknown or Not Available. History of Immunizations Unknown or Not Available. Problems Problem Code Start Date Resolved Date Status Hypertension 59487179 Active Empyema 136700066 Active Results Unknown or Not Available. Active Medications Medication Code Dose Units Frequency Route Modificatio n Start Date/Time Cefpodoxime Proxetil 200MG Oral Tablet 232275 1 TABLET TWICE A DAY ORAL 2023 12:47 Prescription Detail TAKE 1 TABLET ORAL TWICE A DAY Ondansetron 4MG Oral Tablet, Disintegrating 871901 1 TABLET NEEDED EVERY 6 HOURS ORAL 04/19/2023 12:47 Prescription Detail TAKE 1 TABLET ORAL NEEDED EVERY 6 HALLE RS FOR Nausea/Vomiting Medications Administered During Visit Unknown or Not Available. Encounters Encounter Diagnosis Diagnosis Code Start Date Encounter for screening mamm ogram for malignant neoplasm of breast Z1231 06/13/2022 Social History Smoking Status Code Start Date End Date Never smoker 295348352 Patient Decision Aids Unknown or Not Available. [...]
--- OUTSIDE RECORDS SUMMARY | 2023-06-06 21:22 | XMS_ITS | CCD ---
Author Name Unknown Address [address] [place] [address] [phone] Organization Unknown Address [address] [place] [address] [id number] Care Team Providers Care Business Data Analyst Name Role Phone SAÚL GUY Attending Physician [phone] SAÚL GUY (Secondary) Physi osman [phone] Vital Signs Unknown or Not Available. Allergies Allergy Code Allergy Type Reaction Status No Known Allergies 0 No known allergies Active Procedures Unknown or Not Available. History of Immunizations Unknown or Not Available. Problems Problem Code Start Date Resolved Date Status Hypertension 98404833 Active Empyema 997244212 Active Results Unknown or Not Available. Active Medications Medication Code Dose Units Frequency Route Modificatio n Start Date/Time Cefpodoxime Proxetil 200MG Oral Tablet 493482 1 TABLET TWICE A DAY ORAL 2023 12:47 Prescription Detail TAKE 1 TABLET ORAL TWICE A DAY Ondansetron 4MG Oral Tablet, Disintegrating 741760 1 TABLET NEEDED EVERY 6 HOURS ORAL 04/19/2023 12:47 Prescription Detail TAKE 1 TABLET ORAL NEEDED EVERY 6 HALLE RS FOR Nausea/Vomiting Medications Administered During Visit Unknown or Not Available. Encounters Encounter Diagnosis Diagnosis Code Start Date Idiopathic osteoarthritis [id number] 2022 Social History Smoking Status Code Start Date End Date Never smoker 743850282 Patient Decision Aids Unknown or Not Available. Discharge Instructions You were admitted to [facility] on 03/29/2023 11:15 with a principal diagnosis of Unilateral primary osteoarthritis, right knee You were discharged from [facility] on 03/29/2023 08:17 Should you [...]
--- OUTSIDE RECORDS SUMMARY | 2023-06-06 21:22 | XMS_ITS | CCD ---
Author Name Unknown Address [address] [place] [address] [phone] Organization Unknown Address [address] [place] [address] [phone] Care Team Providers Care Packing Clerk Name Role Phone MARIANNA PONCE Attending Physician [phone] Vital Signs Unknown or Not Available. Allergies Allergy Code Allergy Type Reaction Status No Known Allergies 0 No known allergies Active Procedures Unknown or Not Available. History of Immunizations Unknown or Not Available. Problems Problem Code Start Date Resolved Date Status Hypertension 62792177 Active Empyema 174742644 Active Results Unknown or Not Available. Active Medications Medication Code Dose Units Frequency Route Modificatio n Start Date/Time Cefpodoxime Proxetil 200MG Oral Tablet 830503 1 TABLET TWICE A DAY ORAL 2023 12:47 Prescription Detail TAKE 1 TABLET ORAL TWICE A DAY Ondansetron 4MG Oral Tablet, Disintegrating 858194 1 TABLET NEEDED EVERY 6 HOURS ORAL 04/19/2023 12:47 Prescription Detail TAKE 1 TABLET ORAL NEEDED EVERY 6 HALLE RS FOR Nausea/Vomiting Medications Administered During Visit Unknown or Not Available. Encounters Encounter Diagnosis Diagnosis Code Start Date Dyspnea 003075303 05/27/2022 Social History Smoking Status Code Start Date End Date Never smoker 669324326 Patient Decision Aids Unknown or Not Available. Discharge Instructions You were admitted to [facility] on 05/27/2022 14:32 with a principal diagnosis of Other forms of dyspnea You were discharged from [facility] on 05/27/2022 14:32 Should you have [...]
[2023-06-09 14:01] LABS: Helicobacter pylori Ag, Feces Negative (Negative)
== END 2023-06-06 21:21 | disposition home or self-care (01) ==
LOC: NCHCN 21:20
PROVIDERS: PCP Internal Medicine; Visit Provider Nurse Practitioner Family
DX: K29.70 Gastritis, unspecified, without bleeding (principal)
CPT/HCPCS: 87338

== ENCOUNTER 2024-10-21 18:53 | Outpatient (REF) | payer MEDICARE, SELFPAY ==
[2024-10-21 21:08] LABS: Abs Immature Grans 0.01 10^3/uL (0.0-0.06); HCT 37.2 % (36.0-46.0); HGB 12.5 g/dL (11.2-15.7); Immature Grans % 0.2 %; MCH 32.3 pg (27.0-33.0); MCHC 33.6 % (32.0-36.0); MCV 96 fL (80-95); MPV 9.4 fL (8.0-11.0); Platelet Count 335 10^3/uL (130-400); RBC 3.87 10^6/uL (3.93-5.22); RDW 13.6 % (11.7-14.6); RDW-SD 48.3 fL; WBC 6.35 10^3/uL (4.4-10.8)
[2024-10-21 21:31] LABS: ALT 30 U/L (14-59); AST 23 U/L (15-37); Albumin 4.0 g/dL (3.4-5.0); Alkaline Phosphatase 58 U/L (46-116); Anion Gap 4.6 mmol/L (3-11); BUN 21 mg/dL (7-18); Bilirubin, Total 0.9 mg/dL (0.2-1.0); CO2 31.4 mmol/L (21.0-32.0); Calcium 9.3 mg/dL (8.5-10.1); Chloride 104 mmol/L (98-107); Estimated GFR 74.90 (mL/min/1.73m2); Glucose 109 mg/dL (74-106); Potassium 4.4 mmol/L (3.5-5.1); Sodium 140 mmol/L (136-145); TSH 27.08 uIU/mL (0.36-3.74); Total Protein 7.7 g/dL (6.4-8.2)
== END 2024-10-21 18:54 | disposition home or self-care (01) ==
LOC: NCHCN 18:53
PROVIDERS: PCP Internal Medicine; Visit Provider Internal Medicine
DX: R19.5 Other fecal abnormalities (principal)
CPT/HCPCS: 80053; 82784; 83516; 84443; 85025

== ENCOUNTER 2024-12-11 15:47 | Outpatient (REF) | payer MEDICARE, SELFPAY ==
[2024-12-11 14:58] LABS: TSH 2.67 uIU/mL (0.36-3.74)
== END 2024-12-11 15:48 | disposition home or self-care (01) ==
LOC: NCHCN 15:47
PROVIDERS: PCP Internal Medicine; Visit Provider Family Medicine
DX: E03.9 Hypothyroidism, unspecified (principal)
CPT/HCPCS: 84443